=== PATIENT | male | born 1970 | race Caucasian/White ===

== ENCOUNTER 2017-10-27 04:14 | Emergency (ER) | payer OTHER ==
[~2017-10-27] VITALS: Ht 182.9 cm; Wt 96.1 kg
[~2017-10-27 04:14] MED LIST: OMEP20TA62 PO
[2017-10-27] MEDS ORDERED: LIDOCAINE 1%, 10ML ONE (04:42)
[2017-10-27] MEDS ORDERED: LORazepam 1MG TABLET ONE (04:45)
[2017-10-27] MEDS ORDERED: DIPH,PERTUSS(ACELL),TET VAC/PF 0.5 ML IM-VACC ONE ×2 (04:45→05:00)
[2017-10-27] MEDS ORDERED: LORazepam 1MG TABLET PO ONE (05:00)
[2017-10-27] MEDS ORDERED: LIDOCAINE 1%, 20ML SQ ONE (05:00)
[2017-10-27 05:48] VITALS: BP 160/91
== END 2017-10-27 05:49 | disposition home or self-care (01) ==
LOC: ED 05:41
DX: S61.213A Laceration without foreign body of left middle finger without damage to nail, initial encounter (principal); I10 Essential (primary) hypertension; F41.1 Generalized anxiety disorder; X58.XXXA Exposure to other specified factors, initial encounter; Y93.89 Activity, other specified; Y92.009 Unspecified place in unspecified non-institutional (private) residence as the place of occurrence of the external cause; Y99.8 Other external cause status
CPT/HCPCS: 12001; 90471; 90715

== ENCOUNTER 2018-09-05 23:11 | Inpatient (IN) | payer OTHER ==
[~2018-09-05] VITALS: Ht 182.9 cm; Wt 97.8 kg
[2018-09-05] MEDS ORDERED: GABA300C10 PO (23:37)
[2018-09-06] MEDS ORDERED: HYDROmorphone 2 MG/ML, 1ML IVPush PRN
[2018-09-06] MEDS ORDERED: SODIUM CHLORIDE FLUSH 10ML SYR IVF ONE
[2018-09-06] MEDS ORDERED: HYDROmorphone 2 MG/ML, 1ML ONE (00:12)
[2018-09-06 00:31] LABS: BASOPHILS # (AUTO) 0.02 x10^3/uL (0-0.1); BASOPHILS % (AUTO) 0 % (0-1); EOSINOPHILS % (AUTO) 1 % (1-7); LYMPHOCYTES % (AUTO) 26 % (22-44); MD NO; MEAN CORPUSCULAR HEMOGLOBIN 31.6 pg (27.5-34.5); MEAN CORPUSCULAR HGB CONC 34.3 g/dL (33.2-36.2); MEAN CORPUSCULAR VOLUME 92.1 fL (81-97); MEAN PLATELET VOLUME 8.8 fL (7.4-10.4); MONOCYTES # (AUTO) 0.62 x10^3/uL (0.2-0.8); MONOCYTES % (AUTO) 7 % (2-9); NEUTROPHILS # (AUTO) 6.09 x10^3/uL (1.8-6.8); NEUTROPHILS % (AUTO) 66 % (42-75); PLATELET COUNT 189 x10^3/uL (130-400); RED BLOOD COUNT 5.32 x10^6/uL (4.38-5.82); RED CELL DISTRIBUTION WIDTH 12.5 % (9.4-14.8)
[2018-09-06 00:37] LABS: ALANINE AMINOTRANSFERASE 35 U/L (12-78); ALBUMIN 3.9 g/dL (3.4-5.0); ANION GAP 6 mmol/L (5-15); CALCIUM 8.9 mg/dL (8.5-10.1); CHLORIDE 106 mmol/L (98-107)
[2018-09-06 00:39] LABS: ALKALINE PHOSPHATASE 70 U/L (45-117); BILIRUBIN,TOTAL 0.7 mg/dL (0.2-1.0); TOTAL PROTEIN 7.5 g/dL (6.4-8.2)
[2018-09-06] MEDS ORDERED: KETOROLAC 30 MG/1 ML IVPush ONE (01:30)
[2018-09-06] MEDS ORDERED: METHOCARBAMOL 1,000 MG in DEXTROSE 5% 100 ML IV ONE (01:30)
[2018-09-06] MEDS ORDERED: ENOXAPARIN 40 MG/0.4 ML SQ SCH (01:30)
[2018-09-06] MEDS ORDERED: POLYETHYLENE GLYCOL 17 GM PACKET PO PRN (01:30)
[2018-09-06] MEDS ORDERED: NICOTINE 14MG/24 HR PATCH.TD24 TD SCH (01:30)
[2018-09-06 01:39] VITALS: BP 151/105
[2018-09-06] MEDS: HYDROcodone/APAP 5/325 TABLET PO PRN ×3 (02:17→13:11)
[2018-09-06 04:11] LABS: AMPHETAMINE SCREEN, URINE Positive (Negative); BARBITURATE SCREEN, URINE Negative (Negative); BENZODIAZEPINE SCREEN, URINE Negative (Negative); CANNABINOID SCREEN, URINE Positive (Negative); COCAINE SCREEN, URINE Negative (Negative); METHADONE SCREEN, URINE Negative (Negative); OPIATE SCREEN, URINE Negative (Negative)
[2018-09-06 04:12] LABS: CULTURE INDICATED? NO; MICROSCOPIC NOT IND
[2018-09-06 07:09] VITALS: BP 159/100
[2018-09-06] MEDS ORDERED: OMEPRAZOLE 20 MG CAPSULE.DR PO SCH (07:30)
[2018-09-06] MEDS ORDERED: GABAPENTIN 300 MG CAPSULE PO SCH ×2 (09:00→21:00)
[2018-09-06] MEDS ORDERED: GADOBUTROL 10 MMOL/10 ML PFS ONE (14:46)
[2018-09-06 15:06] VITALS: BP 151/109
== END 2018-09-06 16:29 | disposition left against medical advice (07) | DRG 552 ==
LOC: ED 09-06 00:12 → EDIP 09-06 00:30 → 3NW 09-06 01:32
PROVIDERS: ADMIT Family Medicine; ATTEND Family Medicine
DX: M51.27 Other intervertebral disc displacement, lumbosacral region (principal); F17.210 Nicotine dependence, cigarettes, uncomplicated; G89.29 Other chronic pain; K21.9 Gastro-esophageal reflux disease without esophagitis; M51.26 Other intervertebral disc displacement, lumbar region; M65.842 Other synovitis and tenosynovitis, left hand; Z87.442 Personal history of urinary calculi; Z82.49 Family history of ischemic heart disease and other diseases of the circulatory system; Z83.3 Family history of diabetes mellitus
CPT/HCPCS: 36415; 72157; 80053; 80307; 81003; 85025; 87040; 96374; 99285; A9585; G0378; J1170; J1650; J1885; J2800; J7512

== ENCOUNTER 2018-12-21 21:46 | Emergency (ER) | payer OTHER ==
[~2018-12-21] VITALS: Ht 182.9 cm; Wt 101.5 kg
[~2018-12-21 21:46] MED LIST changes: +GABA300C10 PO
--- NOTE | 2018-12-21 21:55 | NUR ---
ODT ZOFRAN GIVEN IN TRIAGE, AWARE TO REMAIN NPO, PT AND AWARE OF WAIT.
[2018-12-21] MEDS ORDERED: MELO7.5T31 PO (21:59)
[2018-12-21] MEDS ORDERED: LISI-167 PO (21:59)
[2018-12-21] MEDS ORDERED: DULO60CA7 PO (21:59)
[2018-12-21] MEDS ORDERED: ONDANSETRON ODT 8 MG PO ONE (22:00)
--- NOTE | 2018-12-21 22:31 | NUR ---
POOR GENTLEMAN NOTES THAT HHIS NAUSEA HAS NOT ABATED AFTER ZOFRAN, AWARE TO REMAIN NPO, AT SIDE, UNDERSTANDING OF WAIT AT THIS TIME
[2018-12-21 22:42] LABS: BASOPHILS # (AUTO) 0.01 x10^3/uL (0-0.1); BASOPHILS % (AUTO) 0 % (0-1); EOSINOPHILS # (AUTO) 0.07 x10^3/uL (0-0.4); EOSINOPHILS % (AUTO) 1 % (1-7); LYMPHOCYTES % (AUTO) 4 % (22-44); MD NO; MEAN CORPUSCULAR HGB CONC 33.8 g/dL (33.2-36.2); MEAN CORPUSCULAR VOLUME 91.6 fL (81-97); MEAN PLATELET VOLUME 8.6 fL (7.4-10.4); MONOCYTES # (AUTO) 0.38 x10^3/uL (0.2-0.8); MONOCYTES % (AUTO) 3 % (2-9); NEUTROPHILS # (AUTO) 10.48 x10^3/uL (1.8-6.8); NEUTROPHILS % (AUTO) 92 % (42-75); PLATELET COUNT 158 x10^3/uL (130-400); RED BLOOD COUNT 6.11 x10^6/uL (4.38-5.82); RED CELL DISTRIBUTION WIDTH 14.4 % (9.4-14.8)
[2018-12-21 22:56] LABS: ALBUMIN 3.8 g/dL (3.4-5.0); ANION GAP 4 mmol/L (5-15); CALCIUM 8.3 mg/dL (8.5-10.1); CHLORIDE 111 mmol/L (98-107)
--- NOTE | 2018-12-21 22:58 | NUR ---
PT REPORTS THAT HE IS FEELING BETTER AT THIS TIME, ABD PAIN ABATED, NO FURTHER N/V, COMPLAIN OF HEADACHE. GIVEN ICE CHIPS, AWARE NEXT TO ROOM
[2018-12-21 22:59] LABS: ALANINE AMINOTRANSFERASE 29 U/L (12-78); ALKALINE PHOSPHATASE 51 U/L (45-117); BILIRUBIN,TOTAL 0.9 mg/dL (0.2-1.0); CREATININE 1.48 mg/dL (0.7-1.3); TOTAL PROTEIN 6.9 g/dL (6.4-8.2)
--- NOTE | 2018-12-21 23:09 | NUR ---
TAKING SIPS OF WATER AT THIS TIME, TOLERATE WELL
--- NOTE | 2018-12-21 23:16 | NUR ---
PT IN ROOM NOW
--- NOTE | 2018-12-21 23:16 | NUR ---
pt walked from lobby to room, pt given ua cup.
--- NOTE | 2018-12-21 23:18 | NUR ---
FIRST CONTACT WITH PT. PT C/O N/V/D SINCE 9PM MAURICIO. PT DENIES ANY FEVER/COUGH/ABD PAIN AT THIS TIME. PT DONATED PLASMA TODAY. PT'S AOX4. REPE EVEN AND UNLABORED. PT'S AT BEDSIDE. PA AT BEDSIDE TO EXPLAIN POC AT THIS TIME.
--- NOTE | 2018-12-21 23:18 | NUR ---
PT AMB TO BR AND BACK TO ROOM WITH STEADY GAIT FOR UA.
[2018-12-21] MEDS ORDERED: SODIUM CHLORIDE FLUSH 10ML SYR IVF ONE (23:30)
[2018-12-21] MEDS ORDERED: ONDANSETRON 2MG/ML, 2ML IVPush ONE (23:30)
[2018-12-21] MEDS ORDERED: SODIUM CHLORIDE 0.9% 1,000ML IVBOLUS ONE (23:30)
[2018-12-21] MEDS ORDERED: FAMOTIDINE 20 MG/2 ML IVP ONE (23:30)
[2018-12-21] MEDS ORDERED: ONDANSETRON 2MG/ML, 2ML ONE (23:35)
[2018-12-21] MEDS ORDERED: FAMOTIDINE 20 MG/2 ML ONE (23:35)
--- NOTE | 2018-12-21 23:51 | NUR ---
PT MEDICATED PER EMAR. PT TOLERATED WELL. PT'S AOX4. RESPS EVEN AND UNLABORED.
[2018-12-22] MEDS ORDERED: LORazepam 1MG TABLET PO ONE
[2018-12-22 00:12] LABS: MICROSCOPIC INDICATED
[2018-12-22 00:13] LABS: CULTURE INDICATED? YES
[2018-12-22] MEDS ORDERED: LORazepam 1MG TABLET ONE (00:13)
--- NOTE | 2018-12-22 00:16 | NUR ---
PT MEDICATED PER EMAR FOR ANXIETY. PT TOLERATED WELL.
[2018-12-22 01:16] VITALS: BP 99/59
--- NOTE | 2018-12-22 01:20 | NUR ---
PT GIVEN DC INSTRUCTIONS AND SCRIPT. PT EDUCATED REGARDING DC MEDICATION. PT'S AOX4. RESPS EVEN AND UNLABORED. NO ACTIVE VOMITTING AT DC. PT AMB TO DC WITH STEADY GAIT. NO ACUTE DISTRESS AT DC.
== END 2018-12-22 01:19 | disposition home or self-care (01) ==
LOC: ED 12-22 00:52
DX: K52.9 Noninfective gastroenteritis and colitis, unspecified (principal); N28.89 Other specified disorders of kidney and ureter; I10 Essential (primary) hypertension
CPT/HCPCS: 36415; 80053; 81001; 83690; 85025; 87086; 96361; 96374; 96375; 99283; J2405; J3490; J7030; Q0162

== ENCOUNTER 2019-01-16 09:39 | Emergency (ER) | payer OTHER ==
[~2019-01-16] VITALS: Ht 182.9 cm; Wt 106.5 kg
[~2019-01-16 09:39] MED LIST changes: +DULO60CA7 PO; +LISI-167 PO; +MELO7.5T31 PO
[2019-01-16] MEDS ORDERED: CYCLOBENZAPRINE 10 MG TABLET ONE (10:22)
[2019-01-16] MEDS ORDERED: KETOROLAC 30 MG/1 ML ONE (10:22)
[2019-01-16] MEDS ORDERED: HYDROcodone/APAP 5/325 TABLET ONE (10:22)
[2019-01-16] MEDS ORDERED: ONDANSETRON ODT 4 MG ONE (10:23)
[2019-01-16] MEDS ORDERED: ONDANSETRON ODT 4 MG PO ONE (10:30)
[2019-01-16] MEDS ORDERED: KETOROLAC 30 MG/1 ML IM ONE (10:30)
[2019-01-16] MEDS ORDERED: HYDROcodone/APAP 5/325 TABLET PO ONE (10:30)
[2019-01-16] MEDS ORDERED: CYCLOBENZAPRINE 10 MG TABLET PO ONE (10:30)
[2019-01-16 11:07] VITALS: BP 136/86
--- NOTE | 2019-01-16 11:08 | NUR ---
Patient/Caregiver given discharge instructions and they have confirmed that they understand the instructions. Patient ambulatory with steady gait.
== END 2019-01-16 11:09 | disposition home or self-care (01) ==
LOC: ED 11:03
DX: M54.42 Lumbago with sciatica, left side (principal); I10 Essential (primary) hypertension; K21.9 Gastro-esophageal reflux disease without esophagitis
CPT/HCPCS: 72110; 96372; 99284; J1885; Q0162

== ENCOUNTER 2019-03-31 12:07 | Inpatient (IN) | payer OTHER, MEDICAID ==
[~2019-03-31] VITALS: Ht 182.9 cm; Wt 103.1 kg
[~2019-03-31 12:07] MED LIST changes: +ETOMIDATE 20 MG/10 ML ONE; +SUCCINYLCHOLINE 20 MG/ML, 10ML ONE; +VECURONIUM 10 MG ONE
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
[2019-03-31] MEDS ORDERED: ETOMIDATE 20 MG/10 ML IVPush ONE (12:30)
[2019-03-31] MEDS ORDERED: SUCCINYLCHOLINE 20 MG/ML, 10ML IVPush ONE (12:30)
[2019-03-31] MEDS ORDERED: LORazepam 2 MG/ML, 1ML IVPush ONE (12:30)
[2019-03-31] MEDS ORDERED: VECURONIUM 10 MG IVPush ONE (12:30)
[2019-03-31] MEDS ORDERED: SODIUM CHLORIDE FLUSH 10ML SYR IVF ONE (12:30)
[2019-03-31] MEDS ORDERED: SODIUM CHLORIDE 0.9% 1,000ML IVBOLUS ONE ×4 (12:30→14:30)
[2019-03-31 13:02] LABS: ALANINE AMINOTRANSFERASE 38 U/L (12-78); ALBUMIN 3.8 g/dL (3.4-5.0); ANION GAP 12 mmol/L (5-15); CALCIUM 8.2 mg/dL (8.5-10.1); CHLORIDE 106 mmol/L (98-107); CREATININE 3.34 mg/dL (0.7-1.3); SALICYLATE LEVEL 2.7 mg/dL (2.8-20.0)
[2019-03-31 13:05] LABS: ALKALINE PHOSPHATASE 83 U/L (45-117); TOTAL PROTEIN 7.4 g/dL (6.4-8.2)
[2019-03-31 13:10] LABS: INTERNATIONAL NORMALIZED RATIO 1.06 (0.93-1.1); PROTHROMBIN TIME 11.1 Seconds (9.6-11.5)
[2019-03-31 13:11] LABS: BILIRUBIN,TOTAL < 0.1 mg/dL (0.2-1.0)
[2019-03-31 13:24] LABS: MEAN CORPUSCULAR HEMOGLOBIN 30.3 pg (27.5-34.5); MEAN CORPUSCULAR HGB CONC 32.3 g/dL (33.2-36.2); MEAN CORPUSCULAR VOLUME 93.9 fL (81-97); MEAN PLATELET VOLUME 9.1 fL (7.4-10.4); PLATELET COUNT 199 x10^3/uL (130-400); RED BLOOD COUNT 5.71 x10^6/uL (4.38-5.82); RED CELL DISTRIBUTION WIDTH 13.6 % (9.4-14.8)
[2019-03-31 13:45] LABS: BASOPHILS # (AUTO) 0.01 x10^3/uL (0-0.1); BASOPHILS % (AUTO) 0 % (0-1); EOSINOPHILS # (AUTO) 0.01 x10^3/uL (0-0.4); EOSINOPHILS % (AUTO) 0 % (1-7); LYMPHOCYTES # (AUTO) 1.02 x10^3/uL (1-3.4); LYMPHOCYTES % (AUTO) 6 % (22-44); MD SCAN; MONOCYTES # (AUTO) 1.32 x10^3/uL (0.2-0.8); MONOCYTES % (AUTO) 8 % (2-9); NEUTROPHILS # (AUTO) 15.05 x10^3/uL (1.8-6.8); NEUTROPHILS % (AUTO) 87 % (42-75)
[2019-03-31] MEDS: NOREPINEPHRINE 4 MG in SODIUM CHLORIDE 0.9% 246 ML IV PRN ×4 (13:50→21:35)
[2019-03-31] MEDS ORDERED: VANCOMYCIN PER PHARMACY MC ONE (14:00)
[2019-03-31] MEDS ORDERED: CEFTRIAXONE PMX 2GM/50ML 50 ML IV ONE (14:00)
[2019-03-31] MEDS ORDERED: VANCOMYCIN 2,000 MG in SODIUM CHLORIDE 0.9% 500 ML IV ONE (14:00)
[2019-03-31] MEDS ORDERED: PIPERACILLIN/TAZO/PMX 4.5GM 100 ML IV ONE (14:00)
[2019-03-31 14:29] LABS: AMPHETAMINE SCREEN, URINE Negative (Negative); BARBITURATE SCREEN, URINE Negative (Negative); BENZODIAZEPINE SCREEN, URINE Positive (Negative); CANNABINOID SCREEN, URINE Negative (Negative); COCAINE SCREEN, URINE Negative (Negative); METHADONE SCREEN, URINE Negative (Negative); OPIATE SCREEN, URINE Negative (Negative)
[2019-03-31] MEDS: ALBUTEROL/IPRATROPIUM 2.5MG/0.5MG, 3 ML INLINE SCH ×3 (14:30→22:00)
[2019-03-31] MEDS ORDERED: SODIUM CHLORIDE 0.9%, 500ML IVBOLUS ONE (14:30)
[2019-03-31] MEDS ORDERED: LACTULOSE 20 GM/30 ML UDC NG PRN (14:30)
[2019-03-31] MEDS ORDERED: SENNA 176 MG/5 ML ORAL SOL NG PRN (14:30)
[2019-03-31] MEDS ORDERED: LIDOCAINE-MPF 1%, 2ML ENDO PRN (14:30)
[2019-03-31] MEDS ORDERED: PHARMACY MAY ADJ FOR RENAL FX MC SCH (14:30)
[2019-03-31] MEDS ORDERED: FENTANYL PF 100 MCG/2ML IVPush PRN (14:30)
[2019-03-31] MEDS ORDERED: BISACODYL 10 MG SUPP PR PRN (14:30)
[2019-03-31] MEDS ORDERED: SENNA/DOCUSATE TABLET NG PRN (14:30)
--- NOTE | 2019-03-31 14:32 | NUR ---
LATE ENTRY FOR 1215 NO IMPROVEMENT WITH ATIVAN. PT REMAINS UNRESPONSIVE TO PAINFUL STIMULI. PT TO BE INTUBATED.
--- NOTE | 2019-03-31 14:35 | NUR ---
LATE ENTRY FOR 1226 PT MED NOTED FOR INTUBATION, IVF INFUSING W/O DIFFICULTY ON PRESSURE BAG. PT INTUBATED, OGT INSERTED AND PLACEMENT VERRIFIED. ETC02 MONITORING IN PLACE, QUINN CATH INSERTED. INTITIAL TEMP 91.3 BLANKET WARMER PLACED. BILAT SOFT WRIST RESTRAINTS PLACED.
--- NOTE | 2019-03-31 14:38 | NUR ---
LATE ENTRY FOR 1330 PT PRESSURE REMAINS LOW DESPITE NS BOLUS. DR MARISCAL AWARE, NOREPI GTT ORDERED. PER DR MARISCAL PT TO GO TO CT NOW. RT AT BEDSIDE PT ON TRANSPORT VENT AND MONITOR. PT TO CT WITH EMT, RN AND RT TRANSPORT.
[2019-03-31] MEDS ORDERED: INSULIN REGULAR 100 UNITS/ML, 3ML VIAL IVPush ONE (15:00)
[2019-03-31] MEDS ORDERED: LABETALOL 5 MG/ML SYRINGE IVPush PRN (15:00)
[2019-03-31] MEDS ORDERED: hydrALAzine 20 MG/ML, 1ML IVPush PRN (15:00)
[2019-03-31] MEDS: DIAZEPAM 5 MG/ML, 2ML IV SCH ×3 (15:00→23:37)
[2019-03-31] MEDS ORDERED: SODIUM BICARBONATE 1 MEQ/ML, 50ML VIAL IVPush ONE (15:00)
[2019-03-31] MEDS ORDERED: DEXTROSE 50%, 50ML SYRINGE IVPush ONE (15:00)
[2019-03-31] MEDS ORDERED: PROPOFOL 100 ML IV PRN (15:00)
[2019-03-31] MEDS ORDERED: LORazepam 2 MG/ML, 1ML ONE (15:07)
[2019-03-31 15:10] LABS: TRIGLYCERIDES 255 mg/dL (50-200)
[2019-03-31 15:19] LABS: CREATINE KINASE, TOTAL 1639 U/L (39-308)
[2019-03-31] MEDS: ALBUTEROL/IPRATROPIUM 2.5MG/0.5MG, 3 ML NPPB SCH ×2 (15:30→19:30)
[2019-03-31] MEDS ORDERED: ALBUTEROL/IPRATROPIUM 2.5MG/0.5MG, 3 ML NPPB PRN (15:30)
[2019-03-31] MEDS: HEPARIN 5,000 UNITS/ML, 1ML SQ SCH ×2 (17:19→23:27)
--- NOTE | 2019-03-31 17:21 | NUR ---
LATE ENTRY FOR 1445 PT BP AND SP02 REMAIN LOW, DISCUSSED WITH LIVIER LINDO TO TRANSPORT PT TO CCU. PT TO CCU, ON MONITOR RN, EMT, RT ESCORT.
[2019-03-31] MEDS ORDERED: VASOPRESSIN 100 UNIT in SODIUM CHLORIDE 0.9% 495 ML IV PRN (17:30)
--- NOTE | 2019-03-31 18:03 | NUR ---
I SPOKE WITH [facility]. PER LT KENNY THEY HAD NOT BEEN IN CONTACT WITH THE PATIENTS FAMILY. I DISCUSSED THAT DUE TO THE CRITICAL CONDITION IN WHICH [facility] REC'D THE PATIENT FROM THE [facility]ISTED CENTER THAT THEY NEEDED TO NOTIFY THE FAMILY. LT KENNY STATED THAT HE WOULD ATTEMPT TO CONTACT THE FAMILY. HE STATED THAT THEY HAD A NAME OF NATALIE RINCON CONTACT. I ASKED LT KENNY TO INSTRUCT THE FAMILY TO CALL EITHER STACY MARIANO TAKING CARE OF THE PT OR STACY CERDA THE CHARGE NURSE IN ICU. LT KENNY CONFIRMED THAT HE WOULD DO THAT AND THAT IF HE WAS NOT SUCCESSFUL IN CONTACTING FAMILY HE WOULD INFORM PRASHANT.
--- NOTE | 2019-03-31 18:20 | NUR ---
[facility] CALLED TO INFORM ME THAT HE CONTACTED PTS MOTHER AND GAVE HER THE CONTACT INFORMATION FOR [facility]. HIS MOTHERS NUMBER IS [phone] I INFORMED META OF THE ABOVE.
[2019-03-31] MEDS: SODIUM BICARBONATE 8.4% 150 MEQ in DEXTROSE 5% 1,000 ML IV SCH (18:33)
[2019-03-31] MEDS: POTASSIUM CHLORIDE 20 MEQ, MAGNESIUM SULFATE 1 GM, THIAMINE 200 MG, FOLIC ACID 1 MG, MV... IV SCH ×2 (19:22→20:00)
[2019-03-31 20:27] LABS: ANION GAP 6 mmol/L (5-15); CALCIUM 6.5 mg/dL (8.5-10.1); CHLORIDE 115 mmol/L (98-107)
[2019-03-31] MEDS: PIPERACILLIN/TAZO/PMX 3.375GM 50 ML IV SCH (20:44)
[2019-04-01] MEDS: PROPOFOL 100 ML IV PRN ×5 (00:07→23:01)
[2019-04-01] MEDS: NOREPINEPHRINE 4 MG in SODIUM CHLORIDE 0.9% 246 ML IV PRN ×4 (00:39→19:16)
[2019-04-01] MEDS: PIPERACILLIN/TAZO/PMX 3.375GM 50 ML IV SCH ×4 (02:09→19:49)
[2019-04-01] MEDS: ALBUTEROL/IPRATROPIUM 2.5MG/0.5MG, 3 ML INLINE SCH ×6 (02:27→22:45)
[2019-04-01] MEDS: SODIUM BICARBONATE 8.4% 150 MEQ in DEXTROSE 5% 1,000 ML IV SCH (03:10)
[2019-04-01] MEDS: DIAZEPAM 5 MG/ML, 2ML IV SCH ×6 (03:12→23:00)
[2019-04-01 05:10] LABS: BASOPHILS % (AUTO) 0 % (0-1); EOSINOPHILS % (AUTO) 0 % (1-7); LYMPHOCYTES # (AUTO) 0.64 x10^3/uL (1-3.4); LYMPHOCYTES % (AUTO) 8 % (22-44); MD NO; MEAN CORPUSCULAR HEMOGLOBIN 30.3 pg (27.5-34.5); MEAN CORPUSCULAR HGB CONC 33.1 g/dL (33.2-36.2); MEAN CORPUSCULAR VOLUME 91.6 fL (81-97); MEAN PLATELET VOLUME 9.2 fL (7.4-10.4); MONOCYTES # (AUTO) 0.44 x10^3/uL (0.2-0.8); MONOCYTES % (AUTO) 6 % (2-9); NEUTROPHILS # (AUTO) 6.64 x10^3/uL (1.8-6.8); NEUTROPHILS % (AUTO) 86 % (42-75); PLATELET COUNT 139 x10^3/uL (130-400); RED BLOOD COUNT 4.81 x10^6/uL (4.38-5.82); RED CELL DISTRIBUTION WIDTH 13.8 % (9.4-14.8)
[2019-04-01 05:17] LABS: CHLORIDE 110 mmol/L (98-107)
[2019-04-01 05:33] LABS: ALANINE AMINOTRANSFERASE 56 U/L (12-78); ALBUMIN 2.6 g/dL (3.4-5.0); ALKALINE PHOSPHATASE 41 U/L (45-117); ANION GAP 5 mmol/L (5-15); BILIRUBIN,TOTAL 0.4 mg/dL (0.2-1.0); CALCIUM 6.7 mg/dL (8.5-10.1); CREATINE KINASE, TOTAL 4881 U/L (39-308); CREATININE 2.16 mg/dL (0.7-1.3); TOTAL PROTEIN 5.2 g/dL (6.4-8.2)
[2019-04-01] MEDS: HEPARIN 5,000 UNITS/ML, 1ML SQ SCH ×2 (08:07→16:00)
[2019-04-01] MEDS: PANTOPRAZOLE 40 MG IV IV SCH (08:07)
[2019-04-01] MEDS ORDERED: MAGNESIUM SULFATE PMX 2GM/50ML 50 ML IV SCH (11:00)
[2019-04-01] MEDS ORDERED: MAGNESIUM SULFATE PMX 4GM/100M 100 ML IV ONE (12:00)
[2019-04-01 12:51] LABS: MICROSCOPIC INDICATED
[2019-04-01 12:58] LABS: CULTURE INDICATED? NO
[2019-04-01] MEDS: POTASSIUM CHLORIDE 20 MEQ, MAGNESIUM SULFATE 1 GM, THIAMINE 200 MG, FOLIC ACID 1 MG, MV... IV SCH (13:15)
[2019-04-01] MEDS: SODIUM CHLORIDE 0.9% 1,000 ML IV SCH (21:45)
[2019-04-02] MEDS: HEPARIN 5,000 UNITS/ML, 1ML SQ SCH ×4 (00:30→23:35)
[2019-04-02] MEDS: PIPERACILLIN/TAZO/PMX 3.375GM 50 ML IV SCH ×4 (02:02→20:58)
[2019-04-02] MEDS: PROPOFOL 100 ML IV PRN ×4 (02:02→21:09)
[2019-04-02] MEDS: ALBUTEROL/IPRATROPIUM 2.5MG/0.5MG, 3 ML INLINE SCH ×6 (02:30→22:30)
[2019-04-02] MEDS: DIAZEPAM 5 MG/ML, 2ML IV SCH ×2 (03:00→07:00)
[2019-04-02 04:48] LABS: BASOPHILS # (AUTO) 0.01 x10^3/uL (0-0.1); BASOPHILS % (AUTO) 0 % (0-1); EOSINOPHILS # (AUTO) 0.07 x10^3/uL (0-0.4); EOSINOPHILS % (AUTO) 1 % (1-7); LYMPHOCYTES # (AUTO) 1.13 x10^3/uL (1-3.4); LYMPHOCYTES % (AUTO) 15 % (22-44); MD NO; MEAN CORPUSCULAR HEMOGLOBIN 30.8 pg (27.5-34.5); MEAN CORPUSCULAR HGB CONC 33.4 g/dL (33.2-36.2); MEAN PLATELET VOLUME 9.2 fL (7.4-10.4); MONOCYTES # (AUTO) 0.17 x10^3/uL (0.2-0.8); MONOCYTES % (AUTO) 2 % (2-9); NEUTROPHILS # (AUTO) 6.16 x10^3/uL (1.8-6.8); NEUTROPHILS % (AUTO) 82 % (42-75); PLATELET COUNT 107 x10^3/uL (130-400); RED BLOOD COUNT 4.11 x10^6/uL (4.38-5.82); RED CELL DISTRIBUTION WIDTH 14.4 % (9.4-14.8)
[2019-04-02 04:56] LABS: ALANINE AMINOTRANSFERASE 61 U/L (12-78); ALBUMIN 2.3 g/dL (3.4-5.0); ANION GAP 6 mmol/L (5-15); BILIRUBIN, DIRECT 0.3 mg/dL (0.1-0.2); CALCIUM 7.3 mg/dL (8.5-10.1); CHLORIDE 113 mmol/L (98-107); CREATININE 1.47 mg/dL (0.7-1.3)
[2019-04-02 05:11] LABS: ALKALINE PHOSPHATASE 43 U/L (45-117); BILIRUBIN,INDIRECT 0.4 mg/dL (0.0-2.0); BILIRUBIN,TOTAL 0.7 mg/dL (0.2-1.0); CREATINE KINASE, TOTAL 2901 U/L (39-308); TOTAL PROTEIN 5.1 g/dL (6.4-8.2)
[2019-04-02] MEDS: PANTOPRAZOLE 40 MG IV IV SCH (07:33)
[2019-04-02] MEDS: SODIUM CHLORIDE 0.9% 1,000 ML IV SCH ×2 (07:56→17:30)
[2019-04-02] MEDS ORDERED: DIAZEPAM 5 MG/ML, 2ML IV PRN (08:30)
[2019-04-02] MEDS ORDERED: CALCIUM GLUCONATE 4.6 MEQ in SODIUM CHLORIDE 0.9% 50 ML IV ONE (08:30)
--- NOTE | 2019-04-02 09:49 | NUR ---
TF GOAL: w/ propofol: PROMOTE @ 85ml/hr off propofol: PROMOTE @ 95ml/hr
[2019-04-02] MEDS: POTASSIUM CHLORIDE 20 MEQ, MAGNESIUM SULFATE 1 GM, THIAMINE 200 MG, FOLIC ACID 1 MG, MV... IV SCH (16:59)
[2019-04-03] MEDS: ALBUTEROL/IPRATROPIUM 2.5MG/0.5MG, 3 ML INLINE SCH ×2 (02:26→06:25)
[2019-04-03] MEDS: SODIUM CHLORIDE 0.9% 1,000 ML IV SCH ×2 (02:35→13:32)
[2019-04-03] MEDS: PIPERACILLIN/TAZO/PMX 3.375GM 50 ML IV SCH ×3 (02:35→15:07)
[2019-04-03 04:07] LABS: ANION GAP 6 mmol/L (5-15); CALCIUM 7.8 mg/dL (8.5-10.1); CHLORIDE 112 mmol/L (98-107); CREATININE 1.09 mg/dL (0.7-1.3); TRIGLYCERIDES 215 mg/dL (50-200)
[2019-04-03 04:19] LABS: MEAN CORPUSCULAR HEMOGLOBIN 30.5 pg (27.5-34.5); MEAN CORPUSCULAR HGB CONC 32.9 g/dL (33.2-36.2); MEAN CORPUSCULAR VOLUME 92.7 fL (81-97); MEAN PLATELET VOLUME 9.1 fL (7.4-10.4); PLATELET COUNT 92 x10^3/uL (130-400); RED BLOOD COUNT 3.91 x10^6/uL (4.38-5.82); RED CELL DISTRIBUTION WIDTH 14.7 % (9.4-14.8)
[2019-04-03 04:23] LABS: BASOPHILS # (AUTO) 0.02 x10^3/uL (0-0.1); BASOPHILS % (AUTO) 0 % (0-1); EOSINOPHILS % (AUTO) 2 % (1-7); LYMPHOCYTES # (AUTO) 1.14 x10^3/uL (1-3.4); LYMPHOCYTES % (AUTO) 18 % (22-44); MD SCAN; MONOCYTES # (AUTO) 0.25 x10^3/uL (0.2-0.8); MONOCYTES % (AUTO) 4 % (2-9); NEUTROPHILS # (AUTO) 5.02 x10^3/uL (1.8-6.8); NEUTROPHILS % (AUTO) 77 % (42-75)
[2019-04-03] MEDS: HEPARIN 5,000 UNITS/ML, 1ML SQ SCH (06:38)
[2019-04-03] MEDS: PANTOPRAZOLE 40 MG IV IV SCH (09:06)
[2019-04-03] MEDS: FONDAPARINUX 2.5 MG/0.5 ML SQ SCH (09:06)
[2019-04-03] MEDS: ALBUTEROL/IPRATROPIUM 2.5MG/0.5MG, 3 ML NPPB SCH ×4 (10:25→22:45)
[2019-04-03 11:42] LABS: HIT RESULT NEGATIVE (NEGATIVE)
[2019-04-03] MEDS ORDERED: KETOROLAC 30 MG/1 ML IVPush ONE (21:00)
[2019-04-03] MEDS: PIPERACILLIN/TAZO/PMX 4.5GM 100 ML IV SCH (21:04)
[2019-04-03] MEDS: POTASSIUM CHLORIDE 20 MEQ, MAGNESIUM SULFATE 1 GM, THIAMINE 200 MG, FOLIC ACID 1 MG, MV... IV SCH (21:04)
[2019-04-04] MEDS: PIPERACILLIN/TAZO/PMX 4.5GM 100 ML IV SCH ×4 (03:05→21:48)
[2019-04-04] MEDS: ALBUTEROL/IPRATROPIUM 2.5MG/0.5MG, 3 ML NPPB SCH ×5 (03:16→19:07)
[2019-04-04 04:45] LABS: MEAN CORPUSCULAR HEMOGLOBIN 30.4 pg (27.5-34.5); MEAN CORPUSCULAR HGB CONC 33.4 g/dL (33.2-36.2); PLATELET COUNT 96 x10^3/uL (130-400); RED BLOOD COUNT 3.85 x10^6/uL (4.38-5.82); RED CELL DISTRIBUTION WIDTH 14.1 % (9.4-14.8)
[2019-04-04 04:57] LABS: CHLORIDE 116 mmol/L (98-107)
[2019-04-04 05:08] LABS: ANION GAP 5 mmol/L (5-15); CALCIUM 8.2 mg/dL (8.5-10.1); CREATINE KINASE, TOTAL 813 U/L (39-308); CREATININE 0.89 mg/dL (0.7-1.3)
[2019-04-04 05:23] LABS: BASOPHILS # (AUTO) 0.02 x10^3/uL (0-0.1); BASOPHILS % (AUTO) 0 % (0-1); EOSINOPHILS # (AUTO) 0.11 x10^3/uL (0-0.4); EOSINOPHILS % (AUTO) 2 % (1-7); LYMPHOCYTES # (AUTO) 1.14 x10^3/uL (1-3.4); LYMPHOCYTES % (AUTO) 19 % (22-44); MD SCAN; MONOCYTES # (AUTO) 0.42 x10^3/uL (0.2-0.8); MONOCYTES % (AUTO) 7 % (2-9); NEUTROPHILS # (AUTO) 4.29 x10^3/uL (1.8-6.8); NEUTROPHILS % (AUTO) 72 % (42-75)
[2019-04-04] MEDS: SODIUM CHLORIDE 0.9% 1,000 ML IV SCH (06:10)
[2019-04-04] MEDS: PANTOPRAZOLE 40 MG IV IV SCH (08:04)
[2019-04-04] MEDS: FONDAPARINUX 2.5 MG/0.5 ML SQ SCH (08:04)
[2019-04-04 17:32] VITALS: BP 150/97
[2019-04-04 18:56] VITALS: BP 159/92
[2019-04-04] MEDS: ACETAMINOPHEN 325 MG TABLET PO PRN (20:44)
[2019-04-05 00:50] VITALS: BP 142/91
[2019-04-05] MEDS: PIPERACILLIN/TAZO/PMX 4.5GM 100 ML IV SCH ×4 (03:38→21:51)
[2019-04-05 05:00] LABS: ALBUMIN 2.5 g/dL (3.4-5.0); ANION GAP 6 mmol/L (5-15); CALCIUM 8.5 mg/dL (8.5-10.1); CHLORIDE 108 mmol/L (98-107)
[2019-04-05 05:04] LABS: ALANINE AMINOTRANSFERASE 61 U/L (12-78); ALKALINE PHOSPHATASE 73 U/L (45-117); BILIRUBIN,TOTAL 1.2 mg/dL (0.2-1.0); CHOL/HDL RATIO 4.8; CHOLESTEROL, TOTAL 116 mg/dL (140-239); CREATINE KINASE, TOTAL 334 U/L (39-308); CREATININE 0.99 mg/dL (0.7-1.3); HDL CHOL % 21 % (26-37); HDL CHOLESTEROL (DIRECT) 24 mg/dL (40-60); LDL CHOLESTEROL,CALCULATED 59 mg/dL (54-169); LDL/HDL RATIO 2.5 (0.5-3.0); TOTAL PROTEIN 6.2 g/dL (6.4-8.2); TRIGLYCERIDES 163 mg/dL (50-200); VLDL CHOLESTEROL 33 mg/dL (0-25)
[2019-04-05 06:15] LABS: BASOPHILS # (AUTO) 0.02 x10^3/uL (0-0.1); BASOPHILS % (AUTO) 0 % (0-1); EOSINOPHILS # (AUTO) 0.33 x10^3/uL (0-0.4); EOSINOPHILS % (AUTO) 5 % (1-7); LYMPHOCYTES # (AUTO) 1.13 x10^3/uL (1-3.4); LYMPHOCYTES % (AUTO) 16 % (22-44); MD SCAN; MEAN CORPUSCULAR HEMOGLOBIN 30.1 pg (27.5-34.5); MEAN CORPUSCULAR HGB CONC 33.3 g/dL (33.2-36.2); MEAN CORPUSCULAR VOLUME 90.5 fL (81-97); MEAN PLATELET VOLUME 8.9 fL (7.4-10.4); MONOCYTES # (AUTO) 0.72 x10^3/uL (0.2-0.8); MONOCYTES % (AUTO) 10 % (2-9); NEUTROPHILS # (AUTO) 4.78 x10^3/uL (1.8-6.8); NEUTROPHILS % (AUTO) 69 % (42-75); PLATELET COUNT 120 x10^3/uL (130-400); RED BLOOD COUNT 4.23 x10^6/uL (4.38-5.82); RED CELL DISTRIBUTION WIDTH 13.8 % (9.4-14.8)
[2019-04-05] MEDS: ALBUTEROL/IPRATROPIUM 2.5MG/0.5MG, 3 ML NPPB SCH ×4 (07:00→20:00)
[2019-04-05 07:05] VITALS: BP 137/86
[2019-04-05] MEDS: MULTIVITAMINS/MINERALS TABLET PO SCH (07:48)
[2019-04-05] MEDS: FOLIC ACID 1 MG TABLET PO SCH (07:48)
[2019-04-05] MEDS: LISINOPRIL 10 MG TABLET PO SCH (07:49)
[2019-04-05] MEDS: THIAMINE 100MG TABLET PO SCH (07:49)
[2019-04-05] MEDS: DULOXETINE 30 MG CAPSULE.DR PO SCH (07:49)
[2019-04-05] MEDS: FONDAPARINUX 2.5 MG/0.5 ML SQ SCH (07:50)
[2019-04-05] MEDS: ASPIRIN 325 MG TABLET EC PO SCH (12:01)
[2019-04-05] MEDS: ENOXAPARIN 40 MG/0.4 ML SQ SCH (12:01)
--- NOTE | 2019-04-05 12:58 | NUR ---
REC: Regular diet with thin liquids Addendum: 04/05/19 at 1259 by Jacquelyn SALINAS Amended: Links added.
[2019-04-05 13:59] VITALS: BP 155/97
[2019-04-05 19:32] VITALS: BP 158/92
[2019-04-05] MEDS: ACETAMINOPHEN 325 MG TABLET PO PRN (19:59)
[2019-04-05] MEDS ORDERED: ALBUTEROL/IPRATROPIUM 2.5MG/0.5MG, 3 ML NPPB PRN (20:30)
[2019-04-06 00:10] VITALS: BP 163/97
[2019-04-06] MEDS: PIPERACILLIN/TAZO/PMX 4.5GM 100 ML IV SCH (03:59)
[2019-04-06] MEDS: ASPIRIN 325 MG TABLET EC PO SCH (05:30)
[2019-04-06 07:12] VITALS: BP 147/90
[2019-04-06] MEDS: LISINOPRIL 10 MG TABLET PO SCH (07:54)
[2019-04-06] MEDS: AMOXICILLIN/CLAV 500-125MG TABLET PO SCH ×3 (07:54→22:41)
[2019-04-06] MEDS: THIAMINE 100MG TABLET PO SCH (07:54)
[2019-04-06] MEDS: DULOXETINE 30 MG CAPSULE.DR PO SCH (07:55)
[2019-04-06] MEDS: FOLIC ACID 1 MG TABLET PO SCH (07:55)
[2019-04-06] MEDS: MULTIVITAMINS/MINERALS TABLET PO SCH (07:55)
[2019-04-06] MEDS: ENOXAPARIN 40 MG/0.4 ML SQ SCH (11:30)
[2019-04-06] MEDS: APIXABAN 5 MG TABLET PO SCH ×2 (12:18→19:29)
[2019-04-06 12:35] VITALS: BP 136/95
[2019-04-06] MEDS: SODIUM BICARB 8.4%,50ML SYR. 75 MEQ in SODIUM CHLORIDE 0.45% 1,000 ML IV SCH (14:25)
[2019-04-06 14:29] LABS: CALCIUM 9.2 mg/dL (8.5-10.1)
[2019-04-06 14:34] LABS: ABSOLUTE RETICS # 0.083 x10^6/uL (0.5-1.5); RETICULOCYTE COUNT % 1.68 % (0.5-1.5)
[2019-04-06 14:39] LABS: RED BLOOD COUNT 4.96 x10^6/uL (4.38-5.82)
[2019-04-06 17:39] LABS: MICROSCOPIC AUTO
[2019-04-06 19:30] VITALS: BP 128/87
[2019-04-06] MEDS: ACETAMINOPHEN 325 MG TABLET PO PRN (19:47)
[2019-04-07] MEDS: SODIUM BICARB 8.4%,50ML SYR. 75 MEQ in SODIUM CHLORIDE 0.45% 1,000 ML IV SCH ×2 (01:08→13:04)
[2019-04-07 01:41] VITALS: BP 134/84
[2019-04-07 06:48] VITALS: BP 122/78
[2019-04-07 06:56] LABS: BASOPHILS # (AUTO) 0.03 x10^3/uL (0-0.1); BASOPHILS % (AUTO) 0 % (0-1); EOSINOPHILS # (AUTO) 0.34 x10^3/uL (0-0.4); EOSINOPHILS % (AUTO) 5 % (1-7); LYMPHOCYTES # (AUTO) 1.32 x10^3/uL (1-3.4); LYMPHOCYTES % (AUTO) 20 % (22-44); MD NO; MEAN CORPUSCULAR HGB CONC 33.1 g/dL (33.2-36.2); MEAN CORPUSCULAR VOLUME 90.7 fL (81-97); MEAN PLATELET VOLUME 8.6 fL (7.4-10.4); MONOCYTES # (AUTO) 0.47 x10^3/uL (0.2-0.8); MONOCYTES % (AUTO) 7 % (2-9); NEUTROPHILS # (AUTO) 4.37 x10^3/uL (1.8-6.8); NEUTROPHILS % (AUTO) 67 % (42-75); PLATELET COUNT 166 x10^3/uL (130-400); RED BLOOD COUNT 4.96 x10^6/uL (4.38-5.82); RED CELL DISTRIBUTION WIDTH 13.9 % (9.4-14.8)
[2019-04-07 07:03] LABS: CALCIUM 8.7 mg/dL (8.5-10.1); CHLORIDE 108 mmol/L (98-107)
[2019-04-07 07:11] LABS: ALANINE AMINOTRANSFERASE 52 U/L (12-78); ALBUMIN 2.8 g/dL (3.4-5.0); ALKALINE PHOSPHATASE 83 U/L (45-117); ANION GAP 3 mmol/L (5-15); BILIRUBIN,TOTAL 0.5 mg/dL (0.2-1.0); CREATINE KINASE, TOTAL 93 U/L (39-308); CREATININE 0.86 mg/dL (0.7-1.3); TOTAL PROTEIN 6.6 g/dL (6.4-8.2)
[2019-04-07] MEDS: MULTIVITAMINS/MINERALS TABLET PO SCH (08:21)
[2019-04-07] MEDS: AMOXICILLIN/CLAV 500-125MG TABLET PO SCH ×2 (08:21→16:33)
[2019-04-07] MEDS: DULOXETINE 30 MG CAPSULE.DR PO SCH (08:21)
[2019-04-07] MEDS: FOLIC ACID 1 MG TABLET PO SCH (08:21)
[2019-04-07] MEDS: THIAMINE 100MG TABLET PO SCH (08:21)
[2019-04-07] MEDS: APIXABAN 5 MG TABLET PO SCH ×2 (08:21→19:51)
[2019-04-07] MEDS ORDERED: OMNIPAQUE 350 MG/ML, 100ML BOTTLE ONE (08:49)
[2019-04-07] MEDS: ENOXAPARIN 40 MG/0.4 ML SQ SCH (11:33)
[2019-04-07] MEDS: ACETAMINOPHEN 325 MG TABLET PO PRN ×2 (11:33→19:52)
[2019-04-07 13:14] VITALS: BP 129/83
[2019-04-07 19:30] VITALS: BP 135/88
[2019-04-08] MEDS: AMOXICILLIN/CLAV 500-125MG TABLET PO SCH ×3 (00:53→17:51)
[2019-04-08 01:28] VITALS: BP 125/75
[2019-04-08] MEDS: SODIUM BICARB 8.4%,50ML SYR. 75 MEQ in SODIUM CHLORIDE 0.45% 1,000 ML IV SCH (04:07)
[2019-04-08 07:10] VITALS: BP 115/75
[2019-04-08] MEDS: THIAMINE 100MG TABLET PO SCH (09:00)
[2019-04-08] MEDS: MULTIVITAMINS/MINERALS TABLET PO SCH (09:00)
[2019-04-08] MEDS: FOLIC ACID 1 MG TABLET PO SCH (09:00)
[2019-04-08] MEDS: APIXABAN 5 MG TABLET PO SCH ×2 (09:00→20:12)
[2019-04-08] MEDS: DULOXETINE 30 MG CAPSULE.DR PO SCH (09:00)
[2019-04-08 09:21] LABS: BASOPHILS # (AUTO) 0.02 x10^3/uL (0-0.1); BASOPHILS % (AUTO) 0 % (0-1); EOSINOPHILS # (AUTO) 0.23 x10^3/uL (0-0.4); EOSINOPHILS % (AUTO) 3 % (1-7); LYMPHOCYTES # (AUTO) 1.46 x10^3/uL (1-3.4); LYMPHOCYTES % (AUTO) 18 % (22-44); MD NO; MEAN CORPUSCULAR HEMOGLOBIN 29.5 pg (27.5-34.5); MEAN CORPUSCULAR HGB CONC 33.1 g/dL (33.2-36.2); MEAN PLATELET VOLUME 8.4 fL (7.4-10.4); MONOCYTES # (AUTO) 0.44 x10^3/uL (0.2-0.8); MONOCYTES % (AUTO) 6 % (2-9); NEUTROPHILS % (AUTO) 73 % (42-75); PLATELET COUNT 201 x10^3/uL (130-400); RED BLOOD COUNT 4.94 x10^6/uL (4.38-5.82); RED CELL DISTRIBUTION WIDTH 14.1 % (9.4-14.8)
[2019-04-08 09:25] LABS: ANION GAP 8 mmol/L (5-15); CALCIUM 8.8 mg/dL (8.5-10.1); CHLORIDE 107 mmol/L (98-107)
[2019-04-08] MEDS: ENOXAPARIN 40 MG/0.4 ML SQ SCH (11:30)
[2019-04-08] MEDS ORDERED: PROPOFOL 10 MG/ML, 20ML ONE (13:01)
[2019-04-08 13:45] VITALS: BP 115/76
[2019-04-08] MEDS: ACETAMINOPHEN 325 MG TABLET PO PRN ×2 (14:11→19:29)
[2019-04-08 15:15] VITALS: BP 129/78
[2019-04-08 19:18] VITALS: BP 134/87
[2019-04-08] MEDS ORDERED: TRAZODONE 50MG TABLET PO PRN (22:00)
[2019-04-09] MEDS: AMOXICILLIN/CLAV 500-125MG TABLET PO SCH ×2 (01:58→10:06)
[2019-04-09 02:26] VITALS: BP 114/72
[2019-04-09 05:38] LABS: BASOPHILS # (AUTO) 0.02 x10^3/uL (0-0.1); BASOPHILS % (AUTO) 0 % (0-1); EOSINOPHILS % (AUTO) 3 % (1-7); LYMPHOCYTES # (AUTO) 1.88 x10^3/uL (1-3.4); LYMPHOCYTES % (AUTO) 25 % (22-44); MD NO; MEAN CORPUSCULAR HEMOGLOBIN 29.2 pg (27.5-34.5); MEAN CORPUSCULAR HGB CONC 32.3 g/dL (33.2-36.2); MEAN CORPUSCULAR VOLUME 90.5 fL (81-97); MEAN PLATELET VOLUME 8.5 fL (7.4-10.4); MONOCYTES # (AUTO) 0.45 x10^3/uL (0.2-0.8); MONOCYTES % (AUTO) 6 % (2-9); NEUTROPHILS # (AUTO) 5.05 x10^3/uL (1.8-6.8); NEUTROPHILS % (AUTO) 67 % (42-75); PLATELET COUNT 216 x10^3/uL (130-400); RED BLOOD COUNT 4.93 x10^6/uL (4.38-5.82); RED CELL DISTRIBUTION WIDTH 14.3 % (9.4-14.8)
[2019-04-09 05:46] LABS: ALANINE AMINOTRANSFERASE 55 U/L (12-78); ANION GAP 6 mmol/L (5-15); CALCIUM 8.7 mg/dL (8.5-10.1); CHLORIDE 109 mmol/L (98-107); CREATININE 0.88 mg/dL (0.7-1.3)
[2019-04-09 05:48] LABS: ALKALINE PHOSPHATASE 76 U/L (45-117); BILIRUBIN,TOTAL 0.4 mg/dL (0.2-1.0); TOTAL PROTEIN 6.7 g/dL (6.4-8.2)
[2019-04-09 08:12] VITALS: BP 106/67
[2019-04-09] MEDS: FOLIC ACID 1 MG TABLET PO SCH (10:06)
[2019-04-09] MEDS: THIAMINE 100MG TABLET PO SCH (10:06)
[2019-04-09] MEDS: MULTIVITAMINS/MINERALS TABLET PO SCH (10:06)
[2019-04-09] MEDS: APIXABAN 5 MG TABLET PO SCH (10:08)
[2019-04-09] MEDS: DULOXETINE 30 MG CAPSULE.DR PO SCH (10:09)
[2019-04-09] MEDS: ACETAMINOPHEN 325 MG TABLET PO PRN (10:09)
[2019-04-09] MEDS ORDERED: APIX5TAB PO (11:31)
[2019-04-09] MEDS ORDERED: DULO30CA2 PO (11:31)
[2019-04-09] MEDS ORDERED: MULT-484 PO (11:31)
[2019-04-09] MEDS ORDERED: THIA100T67 PO (11:31)
[2019-04-09] MEDS ORDERED: FOLI-17 PO (11:31)
[2019-04-09] MEDS ORDERED: TRAZ50TA66 PO (11:31)
[2019-04-13] MEDS ORDERED: APIXABAN 5 MG TABLET PO SCH (09:00)
== END 2019-04-09 14:55 | disposition home or self-care (01) | DRG 871 ==
LOC: ED 12:21 → EDIP 14:23 → CCU 14:52 → 3NE 04-04 10:14 → 4WST 04-04 18:11 → DCLOUNGE 04-09 14:41
PROVIDERS: ADMIT Internal Medicine; ATTEND Internal Medicine
PROC: 0BH17EZ Insertion of Endotracheal Airway into Trachea, Via Natural or Artificial Opening (ICD-10-PCS; principal; 2019-03-31)
PROC: 5A12012 Performance of Cardiac Output, Single, Manual (ICD-10-PCS; 2019-03-31)
PROC: 05HM33Z Insertion of Infusion Device into Right Internal Jugular Vein, Percutaneous Approach (ICD-10-PCS; 2019-03-31)
PROC: B543ZZA Ultrasonography of Right Jugular Veins, Guidance (ICD-10-PCS; 2019-03-31)
PROC: 5A1945Z Respiratory Ventilation, 24-96 Consecutive Hours (ICD-10-PCS; 2019-03-31)
PROC: 03HY32Z Insertion of Monitoring Device into Upper Artery, Percutaneous Approach (ICD-10-PCS; 2019-03-31)
PROC: 4A133B1 Monitoring of Arterial Pressure, Peripheral, Percutaneous Approach (ICD-10-PCS; 2019-03-31)
PROC: 4A133J1 Monitoring of Arterial Pulse, Peripheral, Percutaneous Approach (ICD-10-PCS; 2019-03-31)
PROC: B24BZZ4 Ultrasonography of Heart with Aorta, Transesophageal (ICD-10-PCS; 2019-04-08)
DX: A41.9 Sepsis, unspecified organism (principal); G92 Toxic encephalopathy; I46.9 Cardiac arrest, cause unspecified; I63.9 Cerebral infarction, unspecified; J69.0 Pneumonitis due to inhalation of food and vomit; J96.00 Acute respiratory failure, unspecified whether with hypoxia or hypercapnia; N17.0 Acute kidney failure with tubular necrosis; R65.21 Severe sepsis with septic shock; E27.40 Unspecified adrenocortical insufficiency; E87.2 Acidosis; F10.239 Alcohol dependence with withdrawal, unspecified; G93.1 Anoxic brain damage, not elsewhere classified; I82.C19 Acute embolism and thrombosis of unspecified internal jugular vein; M62.82 Rhabdomyolysis; Q21.1 Atrial septal defect; Z99.11 Dependence on respirator [ventilator] status; E83.42 Hypomagnesemia; E83.51 Hypocalcemia; E83.52 Hypercalcemia; E86.0 Dehydration; E87.6 Hypokalemia; E88.09 Other disorders of plasma-protein metabolism, not elsewhere classified; F17.210 Nicotine dependence, cigarettes, uncomplicated; F32.9 Major depressive disorder, single episode, unspecified; G40.901 Epilepsy, unspecified, not intractable, with status epilepticus; G89.29 Other chronic pain; G56.32 Lesion of radial nerve, left upper limb; I51.7 Cardiomegaly; K21.9 Gastro-esophageal reflux disease without esophagitis; E87.5 Hyperkalemia; M21.332 Wrist drop, left wrist; E66.01 Morbid (severe) obesity due to excess calories; N28.89 Other specified disorders of kidney and ureter; Z79.82 Long term (current) use of aspirin; Z79.1 Long term (current) use of non-steroidal anti-inflammatories (NSAID); Z86.73 Personal history of transient ischemic attack (TIA), and cerebral infarction without residual deficits; Z91.14 Patient's other noncompliance with medication regimen; Z79.899 Other long term (current) drug therapy; Z68.30 Body mass index [BMI] 30.0-30.9, adult; Y90.9 Presence of alcohol in blood, level not specified
CPT/HCPCS: 31500; 36415; 36556; 36600; 80177; 96361; 99291; J7620; 70450; 70551; 71045; 71250; 74176; 74178; 80048; 80053; 80061; 80076; 80307; 81001; 82306; 82310; 82330; 82436; 82533; 82550; 82570; 82728; 82803; 82962; 83540; 83550; 83605; 83735; 83935; 83970; 84100; 84133; 84156; 84300; 84443; 84478; 84550; 85025; 85045; 85610; 85730; 86022; 87040; 87070; 87081; 87205; 93005; 93306; 93308; 93312; 93325; 93880; 94002; 94003; 94150; 94640; 94667; 94668; 95819; 96365; 96375; C1760; G0378; J0610; J1644; J1650; J1815; J1885; J2543; J2704; J3010; J3360; J3370; J3411; J3475; J3480; J7070; Q9967; C9113; J0330; J1652; J2060; J7030; J7040; J7050

== ENCOUNTER 2020-01-24 18:23 | Emergency (ER) | payer MEDICAID ==
[~2020-01-24] VITALS: Ht 182.9 cm; Wt 100.0 kg
[~2020-01-24 18:23] MED LIST changes: +APIX5TAB PO; +DULO30CA2 PO; -ETOMIDATE 20 MG/10 ML ONE; +FOLI-17 PO; +MULT-484 PO; -SUCCINYLCHOLINE 20 MG/ML, 10ML ONE; +THIA100T67 PO; +TRAZ50TA66 PO; -VECURONIUM 10 MG ONE
[2020-01-24] MEDS ORDERED: DULOXETINE 30 MG CAPSULE.DR PO ONE (18:57)
[2020-01-24 19:17] LABS: BASOPHILS # (AUTO) 0.02 x10^3/uL (0-0.1); BASOPHILS % (AUTO) 0 % (0-1); EOSINOPHILS # (AUTO) 0.08 x10^3/uL (0-0.4); EOSINOPHILS % (AUTO) 1 % (1-7); LYMPHOCYTES # (AUTO) 2.51 x10^3/uL (1-3.4); LYMPHOCYTES % (AUTO) 28 % (22-44); MD NO; MEAN CORPUSCULAR HEMOGLOBIN 29.5 pg (27.5-34.5); MEAN CORPUSCULAR HGB CONC 33.6 g/dL (33.2-36.2); MEAN CORPUSCULAR VOLUME 87.6 fL (81-97); MEAN PLATELET VOLUME 8.3 fL (7.4-10.4); MONOCYTES # (AUTO) 0.39 x10^3/uL (0.2-0.8); MONOCYTES % (AUTO) 4 % (2-9); NEUTROPHILS # (AUTO) 6.02 x10^3/uL (1.8-6.8); NEUTROPHILS % (AUTO) 67 % (42-75); PLATELET COUNT 209 x10^3/uL (130-400); RED BLOOD COUNT 6.23 x10^6/uL (4.38-5.82); RED CELL DISTRIBUTION WIDTH 13.6 % (9.4-14.8)
--- NOTE | 2020-01-24 19:20 | NUR ---
PT MOVED TO 1 WITH SITTER IN DOORWAY FOR SAFETY. ALL BELONGINGS BAGGED AND TAGGED (2 BAGS) PLACED IN SECURE LOCKER.
[2020-01-24 19:27] LABS: ALBUMIN 3.8 g/dL (3.4-5.0); ANION GAP 8 mmol/L (5-15); CALCIUM 8.5 mg/dL (8.5-10.1); CHLORIDE 108 mmol/L (98-107)
[2020-01-24 19:29] LABS: CREATININE 0.91 mg/dL (0.7-1.3); SALICYLATE LEVEL 2.9 mg/dL (2.8-20.0)
[2020-01-24 19:37] LABS: AMPHETAMINE SCREEN, URINE Negative (Negative); BARBITURATE SCREEN, URINE Negative (Negative); BENZODIAZEPINE SCREEN, URINE Negative (Negative); CANNABINOID SCREEN, URINE Negative (Negative); COCAINE SCREEN, URINE Negative (Negative); METHADONE SCREEN, URINE Negative (Negative); OPIATE SCREEN, URINE Negative (Negative)
--- NOTE | 2020-01-24 21:00 | NUR ---
SAFETY PRECAUTION'S DC'D PER PHYSICIAN. PT RESTING COMFORTABLY. DENIES SI/HI. MR UPDATED.
--- NOTE | 2020-01-24 22:00 | NUR ---
PT AMBULATED TO BR SBA UNSTEADY GAIT. BTB. 3P'S ADDRESSED.
[2020-01-24 22:36] VITALS: BP 136/96
[2020-01-25] MEDS ORDERED: ONDANSETRON ODT 4 MG PO ONE (01:30)
[2020-01-25] MEDS ORDERED: ONDANSETRON ODT 4 MG ONE (01:43)
== END 2020-01-25 02:51 | disposition home or self-care (01) ==
LOC: ED 21:22
DX: F33.9 Major depressive disorder, recurrent, unspecified (principal); F10.220 Alcohol dependence with intoxication, uncomplicated; K21.9 Gastro-esophageal reflux disease without esophagitis; I10 Essential (primary) hypertension
CPT/HCPCS: 36415; 80048; 80307; 82040; 85025; 99284; Q0162

== ENCOUNTER 2020-02-05 10:54 | Emergency (ER) | payer MEDICAID ==
[~2020-02-05] VITALS: Ht 182.9 cm; Wt 109.1 kg
--- NOTE | 2020-02-05 11:05 | NUR ---
PT BIB [facility] FROM [facility] AFTER PT BECAME DIZZY UPON STANDING WITH INITIAL BP OF 60/40'S PER [facility]. PT REORTS SIMILAR SYMPTOMS OVER LAST WEEK AND BINGED ON ALCOHOL FOR ONE WEEK A WEEK AGO. PT DENIES CP, SOB, COUGH, FEVERS, CHILLS. PT ON MONITOR. WAITING FOR ORDERS.
--- NOTE | 2020-02-05 11:25 | NUR ---
ATTEMPTED TO COMPLETE ORTHOSTATICS BUT PT BECAME WOBBLY AND DIZZY UPON STANFING. DR. PATEL AWARE. BS WAS 90.
[2020-02-05] MEDS ORDERED: SODIUM CHLORIDE 0.9% 1,000ML IVBOLUS ONE ×2 (11:30→15:00)
[2020-02-05 11:33] LABS: BASOPHILS # (AUTO) 0.02 x10^3/uL (0-0.1); BASOPHILS % (AUTO) 0 % (0-1); EOSINOPHILS # (AUTO) 0.07 x10^3/uL (0-0.4); EOSINOPHILS % (AUTO) 1 % (1-7); LYMPHOCYTES % (AUTO) 20 % (22-44); MD NO; MEAN CORPUSCULAR HEMOGLOBIN 30.2 pg (27.5-34.5); MEAN CORPUSCULAR HGB CONC 33.4 g/dL (33.2-36.2); MEAN CORPUSCULAR VOLUME 90.5 fL (81-97); MEAN PLATELET VOLUME 7.9 fL (7.4-10.4); MONOCYTES # (AUTO) 0.42 x10^3/uL (0.2-0.8); MONOCYTES % (AUTO) 8 % (2-9); NEUTROPHILS # (AUTO) 3.52 x10^3/uL (1.8-6.8); NEUTROPHILS % (AUTO) 70 % (42-75); PLATELET COUNT 130 x10^3/uL (130-400); RED BLOOD COUNT 4.46 x10^6/uL (4.38-5.82); RED CELL DISTRIBUTION WIDTH 14.6 % (9.4-14.8)
[2020-02-05 11:46] LABS: ALANINE AMINOTRANSFERASE 34 U/L (12-78); ALBUMIN 2.7 g/dL (3.4-5.0); ANION GAP 6 mmol/L (5-15); CALCIUM 7.6 mg/dL (8.5-10.1); CHLORIDE 113 mmol/L (98-107); CREATININE 1.02 mg/dL (0.7-1.3)
[2020-02-05 11:51] LABS: ALKALINE PHOSPHATASE 60 U/L (45-117); BILIRUBIN,TOTAL 0.2 mg/dL (0.2-1.0); TOTAL PROTEIN 5.3 g/dL (6.4-8.2); TROPONIN I < 0.015 ng/mL (0.000-0.045)
[2020-02-05 12:13] LABS: MICROSCOPIC NOT IND
[2020-02-05 12:17] LABS: CULTURE INDICATED? NO
--- NOTE | 2020-02-05 12:33 | NUR ---
PT SLEEPING WITH PERIODS OF APNEA WHERE PULSE DROPS TO THE MID 80'S. PT PLACED ON 2 LITERS OF OXYGEN, PULSE OX UP TO 96%.
[2020-02-05 12:57] LABS: AMPHETAMINE SCREEN, URINE Negative (Negative); BARBITURATE SCREEN, URINE Negative (Negative); BENZODIAZEPINE SCREEN, URINE Positive (Negative); CANNABINOID SCREEN, URINE Negative (Negative); COCAINE SCREEN, URINE Negative (Negative); METHADONE SCREEN, URINE Negative (Negative); OPIATE SCREEN, URINE Negative (Negative)
--- NOTE | 2020-02-05 13:01 | NUR ---
REPORT RECIEVED FROM JOE KUMAR
--- NOTE | 2020-02-05 14:22 | NUR ---
PT RESTING IN BED, CALL LIHT IN REACH. WILL REATTEMPT ORTHOSTATIC VS.
--- NOTE | 2020-02-05 15:20 | NUR ---
JUSTUS AT BEDSIDE FOR EVALUTION
[2020-02-05 15:34] VITALS: BP 113/68
--- NOTE | 2020-02-05 15:52 | NUR ---
DISCHARGE INSTRUCTIONS REVIEWED
== END 2020-02-05 15:58 | disposition home or self-care (01) ==
LOC: ED 11:41
DX: R42 Dizziness and giddiness (principal); I95.9 Hypotension, unspecified; I10 Essential (primary) hypertension
CPT/HCPCS: 71045; 80053; 80307; 81003; 82962; 83880; 84484; 85025; 93005; 96360; 99285; J7030

== ENCOUNTER 2020-05-07 13:33 | Emergency (ER) | payer MEDICAID ==
[~2020-05-07] VITALS: Ht 182.9 cm; Wt 99.7 kg
[2020-05-07] MEDS ORDERED: PANTOPRAZOLE 40 MG IV IVPush ONE (14:00)
[2020-05-07] MEDS ORDERED: THIAMINE 100 MG in SODIUM CHLORIDE 0.9% 50 ML IVPB ONE (14:00)
[2020-05-07] MEDS ORDERED: LORazepam 2 MG/ML, 1ML IVPush PRN (14:00)
[2020-05-07] MEDS ORDERED: SODIUM CHLORIDE 0.9%, 500ML IVBOLUS ONE (14:00)
[2020-05-07 14:13] LABS: BASOPHILS # (AUTO) 0.04 x10^3/uL (0-0.1); BASOPHILS % (AUTO) 0 % (0-1); EOSINOPHILS # (AUTO) 0.07 x10^3/uL (0-0.4); EOSINOPHILS % (AUTO) 1 % (1-7); LYMPHOCYTES # (AUTO) 1.96 x10^3/uL (1-3.4); LYMPHOCYTES % (AUTO) 21 % (22-44); MD NO; MEAN CORPUSCULAR HEMOGLOBIN 30.8 pg (27.5-34.5); MEAN CORPUSCULAR HGB CONC 33.5 g/dL (33.2-36.2); MEAN CORPUSCULAR VOLUME 91.8 fL (81-97); MEAN PLATELET VOLUME 9.1 fL (7.4-10.4); MONOCYTES # (AUTO) 0.48 x10^3/uL (0.2-0.8); MONOCYTES % (AUTO) 5 % (2-9); NEUTROPHILS # (AUTO) 6.74 x10^3/uL (1.8-6.8); NEUTROPHILS % (AUTO) 73 % (42-75); PLATELET COUNT 188 x10^3/uL (130-400); RED BLOOD COUNT 5.59 x10^6/uL (4.38-5.82); RED CELL DISTRIBUTION WIDTH 13.3 % (9.4-14.8)
--- NOTE | 2020-05-07 14:15 | NUR ---
BREAK RN: CONTACT WITH PT. 49 YR OLD MALE HERE WITH C/O "NOT DRINKING ALCOHOL, VOMITING, NOT FEELING WELL, ACUTE WITHDRAWEL" PT REPORTS HX OF SEIZURES WITH ALCOHOL W/D. PT SITTING UP ON GURNEY. 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 "I DONT FEEL WELL" DISCUSSED WITH PT, POC. IV, FLUIDS AND MEDICATIONS, UNDERSTANDING VERBALIZED. PT PLACED ON MONITOR EQUIPMENT.
[2020-05-07 14:18] LABS: ALANINE AMINOTRANSFERASE 36 U/L (12-78); ALBUMIN 4.3 g/dL (3.4-5.0); ANION GAP 8 mmol/L (5-15); CALCIUM 8.8 mg/dL (8.5-10.1); CHLORIDE 106 mmol/L (98-107); CREATININE 1.11 mg/dL (0.7-1.3)
[2020-05-07] MEDS ORDERED: PANTOPRAZOLE 40 MG IV ONE (14:18)
[2020-05-07] MEDS ORDERED: LORazepam 2 MG/ML, 1ML ONE (14:19)
[2020-05-07 14:20] LABS: ALKALINE PHOSPHATASE 96 U/L (45-117); BILIRUBIN,TOTAL 1.3 mg/dL (0.2-1.0)
[2020-05-07 14:23] LABS: INTERNATIONAL NORMALIZED RATIO 1.08 (0.93-1.1); PROTHROMBIN TIME 11.5 Seconds (9.6-11.5)
--- NOTE | 2020-05-07 14:46 | NUR ---
REPORT TO SAMPSON KUMAR.
[2020-05-07 14:56] VITALS: BP 137/89
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
--- NOTE | 2020-05-07 15:08 | NUR ---
report from [facility]. Pt up for re eval by
--- NOTE | 2020-05-07 15:37 | NUR ---
Patient given discharge instructions and they have confirmed that they understand the instructions. Patient ambulatory with steady gait.
[2020-05-07] MEDS ORDERED: POTASSIUM CHLORIDE 20 MEQ TAB.ER.PRT PO SCH (17:00)
== END 2020-05-07 16:18 | disposition home or self-care (01) ==
LOC: ED 14:30
DX: K29.21 Alcoholic gastritis with bleeding (principal); R11.2 Nausea with vomiting, unspecified; R42 Dizziness and giddiness; I10 Essential (primary) hypertension; K21.9 Gastro-esophageal reflux disease without esophagitis
CPT/HCPCS: 36415; 80053; 80307; 83690; 83735; 85025; 85610; 93005; 96365; 96375; 99284; C9113; J2060; J3411; J7040